=== PATIENT | female | born 1950 | race Caucasian/White ===

== ENCOUNTER → 2017-03-23 | Outpatient (CLI) | payer OTHER ==
[2016-01-15 11:39] VITALS: BP 104/62
--- NOTE | 2017-03-24 09:10 | MG ---
Examination: Bilateral screening mammogram. Clinical history: Routine screening. Technique: Digital CC and MLO views of both breasts were obtained. Computer aided detection analysis was performed and used during the interpretation. Comparison: 03/22/2016. Findings: The breasts are composed of scattered fibroglandular densities. Benign-appearing calcifications are noted in the breasts bilaterally. There is an apparent area of architectural distortion present in the upper outer aspect of the left breast in the posterior depth, which may be due to summation artifact. Additional imaging evaluation is recommended, with spot compression magnification views in the CC and MLO projections, a lateral view of the left breast and a left breast ultrasound. No suspicious mass, area of architectural distortion or suspicious cluster of microcalcifications is noted in the right breast. Impression: 1. No mammographic evidence of malignancy. BI-RADS category 0 (ZERO) - ASSESSMENT INCOMPLETE; ADDITIONAL IMAGING IS NEEDED. Recommend immediate recall for additional imaging evaluation, as described above. Diagnostic CAD was utilized and reviewed. * 0 (ZERO) - ASSESSMENT INCOMPLETE; ADDITIONAL IMAGING IS NEEDED. * 0C - ASSESSMENT INCOMPLETE, NEEDS ADDITIONAL IMAGING EVALUATION AND/OR PRIOR MAMMOGRAMS FOR COMPAR BRISA. * 1/1 (ONE) - NEGATIVE. * 2/II (TWO) - BENIGN FINDINGS. * 3/III (THREE) - PROBABLY BENIGN FINDING; SHORT INTERVAL FOLLOW-UP SUGGESTED. * 4/IV (FOUR) - SUSPICIOUS ABNORMALITY; BIOPSY SHOULD BE CONSIDERED. * 5/V - HIGHLY SUSPICIOUS OF MALIGNANCY; BIOPSY SHOULD BE PERFORMED. * 6/IV - KNOWN BIOPSY PROVEN MALIGNANCY-APPROPRIATE ACTION SHOULD BE TAKEN. A NEGATIVE X-RAY REPORT SHOULD NOT DELAY BIOPSY IF A DOMINANT OR CLINICALLY SUSPICIOUS MASS IS PRESENT; 4 TO 8 PERCENT OF CANCERS ARE NOT IDENTIFIED BY X-RAY. A NEGATIVE REPORT MAY REINFORCE THE CLINICAL IMPRESSION. ADENOSIS AND DENSE BREASTS MAY OBSCURE AN UNDERLYING NEOPLASM. Reported By:
== END ==
LOC: RAD 09:43
PROVIDERS: ATTEND Specialist
DX: Z12.31 Encounter for screening mammogram for malignant neoplasm of breast (principal)
CPT/HCPCS: 77067

== ENCOUNTER 2017-04-13 06:42 | Emergency (ER) | payer OTHER ==
[2017-04-13 06:47] VITALS: BP 109/68; BMI 30.9
[2017-04-13] MEDS ORDERED: ZOFRAN TAB 4 MG PO ONE (06:57)
[2017-04-13] MEDS ORDERED: ZOFRAN TAB 4 MG ONE (07:01)
--- NOTE | 2017-04-13 07:11 | DR.GENAD ---
HPI - PCP Primary Care Physician: kurt - Complaint/Symptoms Chief Complaint:: patient stated she returned from a cruise 3 days ago and has been vomiting and diarrhea and very nauseated. - Nurses notes reviewed Nurses Notes Review: Yes - Source History Provided: Patient - Mode of Arrival Mode of Arrival: Ambulatory - Timing Onset of Chief Complaint: 04/10/17 Came on: Gradually - Duration Duration: Intermittent How lon Duration: Days - Location Location: abdomin - Severity Severity: Moderate - Modifying Factors Worsens:: unknown - Associated Signs and Symptoms Associated Signs and Symptoms: dry heaves <DEMARIO TITUS - Last Filed: 04/13/17 07:53> PMH - PMH Past Medical History: Yes Past Medical History: Depression, Dyslipidemia, Hypothyroidism Past Surgical History: Yes Surgical History: Thyroidectomy - Family History History of Family Medical Conditions: Yes Family Medical History: Cancer - Social History Does patient currently use any type of tobacco product: No Have you used tobacco products in the last 12 months: No Type of Tobacco Use: None Does any household member use tobacco: No Alcohol Use: None Do you use any recreational Drugs:: No Lives With: Family Lives Where: Home - infectious screening In the last 2 months have you had wt loss of >10#?: NO Have you had fever, night sweats or hemotysis?: No Have you traveled outside the country in the last 6 months?: No Isolation: Standard <DEMARIO TITUS Last Filed: 04/13/17 07:53> ROS - Review of Systems Constitutional: No Symptoms Reported Eyes: No Symptoms Reported ENTM: No Symptoms Reported Respiratoy: No Symptoms Reported Cardiovascular: No Symptoms Reported Gastrointestinal/Abdominal: Abdominal Pain, Diarrhea, Nausea, Vomiting Genitourinary: No Symptoms Reported Neurological: No Symptoms Reported Musculoskeletal: No Symptoms Reported Integumentary: No Symptoms Reported Hematologic/Lymphatic: No Symptoms Reported Endocrine: No Symptoms Reported Psychiatric: No Symptoms Reported <DEMARIO TITUS Last Filed: 04/13/17 07:53> PE - General Limitations: No Limitations General Appearance: Alert, In No Apparent Distress - Head Head Exam: Normal Inspection - Eyes Eye exam: Normal Appearance, EOMI. negative: Scleral Icterus, Conjunctival Injection - ENT ENT Exam: Normal Exam, Normal Oropharynx External Ear Exam: Normal External Inspection Throat Exam: Normal Inspection - Neck Neck Exam: Normal Inspection, Full ROM, Trachea Midline - Respiratory Respiratory Exam: Normal Lung Sounds Bilat. negative: Accessory Muscle Use, Respiratory Distress Respiratory Exam: Bilateral Clear to Auscultation - Cardiovascular Cardiovascular Exam: Regular Rate - Abdominal Exam Abdominal Exam: Normal Inspection, Soft, Distention, Dimnished Bowel Sounds. negative: Normal Bowel Sounds, Tenderness, Guarding - Extremities Extremities Exam: Normal Inspection, Full ROM - Back Back Exam: Normal Inspection, Full ROM - Neurologic Neurological Exam: Alert, Oriented X3, CN II-XII Intact - Psychiatric Psychiatric Exam: Normal Mood - Skin Skin Exam: Intact, Normal Color <DEMARIO TITUS - Last Filed: 04/13/17 07:53> ROR - Labs Reviewed Result Diagrams: 04/13/17 07:47 04/13/17 07:47 - XRAY XRAY Interpreted by: Radiologist XRAY Findings: AAS: no free air, no air fluid levels <DEMARIO TITUS - Last Filed: 04/13/17 07:53> - Labs Reviewed Result Diagrams: 04/13/17 07:47 04/13/17 07:47 <ALSESIA GUALLPA - Last Filed: 04/13/17 08:45> - Labs Reviewed Laboratory: WBC 5.2 X10^3/uL (3.6-10.0) 04/13/17 07:47 RBC 4.93 X10^6/uL (3.5-5.4) 04/13/17 07:47 Hgb 14.8 g/dL (12.0-16.0) 04/13/17 07:47 Hct 42.3 % (36.0-47.0) 04/13/17 07:47 MCV 85.8 fL (80.0-100.0) 04/13/17 07:47 MCH 29.9 pg (27.0-34.0) 04/13/17 07:47 MCHC 34.9 g/dL (33.0-35.0) 04/13/17 07:47 RDW 14.0 % (11.6-16.5) 04/13/17 07:47 Plt Count 171 X10^3/uL (150.0-450.0) 04/13/17 07:47 MPV 8.6 fL (7.4-11.0) 04/13/17 07:47 Neut % 64.0 % (42.0-75.0) 04/13/17 07:47 Lymph % 21.3 % (21.0-51.0) 04/13/17 07:47 [place] % 12.5 % (0.0-13.0) 04/13/17 07:47 Eos % 1.5 % (0.9-2.9) 04/13/17 07:47 Baso % 0.7 % (0.2-1.0) 04/13/17 07:47 Neut # 3.3 x10^3/uL (2.2-4.8) 04/13/17 07:47 Lymph # 1.1 X10^3/uL (1.3-2.9) L 04/13/17 07:47 [place] # 0.7 x10^3/uL (0.3-0.8) 04/13/17 07:47 Eos # 0.1 x10^3/uL (0.0-0.2) 04/13/17 07:47 Baso # 0.0 X10^3/uL (0.0-0.1) 04/13/17 07:47 Absolute Nucleated RBC 0.1 /100WBC 04/13/17 07:47 Sodium 141 mmol/L (136-145) 04/13/17 07:47 Corrected Sodium TNP 04/13/17 07:47 Potassium 4.2 mmol/L (3.5-5.1) 04/13/17 07:47 Chloride 106 mmol/L (98-107) 04/13/17 07:47 Carbon Dioxide 30.6 mmol/L (21-32) 04/13/17 07:47 BUN 12 mg/dL (7-18) 04/13/17 07:47 Creatinine 0.77 mg/dL (0.55-1.02) 04/13/17 07:47 Est GFR (MDRD) Af Amer > 60 (>60) 04/13/17 07:47 Est GFR (MDRD) Non-Af > 60 (>60) 04/13/17 07:47 Glucose 98 mg/dL (65-99) 04/13/17 07:47 Calcium 9.7 mg/dL (8.5-10.1) 04/13/17 07:47 Urine pH 7.0 (5.0 - 8.0) 04/13/17 08:13 Ur Specific [place] 1.010 (1.000-1.030) 04/13/17 08:13 Urine Protein Negative (NEGATIVE) 04/13/17 08:13 Urine Glucose (UA) Negative (NEGATIVE) 04/13/17 08:13 Urine Ketones Negative (NEGATIVE) 04/13/17 08:13 Urine Occult Blood 2+ (NEGATIVE) 04/13/17 08:13 Urine Nitrite Negative (NEGATIVE) 04/13/17 08:13 Urine Bilirubin Negative (NEGATIVE) 04/13/17 08:13 Urine Urobilinogen Normal (NORMAL) 04/13/17 08:13 Ur Leukocyte Esterase Negative (NEGATIVE) 04/13/17 08:13 (ALESSIA GUALLPA) <DEMARIO TITUS - Last Filed: 04/13/17 07:53> <ALESSIA GUALLPA - Last Filed: 04/13/17 08:45> - Diagnosis Discharge Problem: Gastroenteritis - Discharge Plan Condition: Stable - Follow ups/Referrals Follow ups/Referrals: Rony Oseguera [Primary Care Provider] - 3 days - Instructions Instructions: Viral Gastroenteritis, Adult
--- NOTE | 2017-04-13 07:39 | RAD ---
HISTORY: Vomiting and diarrhea. Lower abdominal pain . Study: Acute abdominal series Comparison: Chest x-ray done January 25, 2015 Findings: The trachea is midline. The cardiac silhouette is unremarkable. There is hyperinflation of the sandra gs with increased interstitial markings. In the appropriate clinical setting findings may indicate C OPD. No infiltrate, CHF, pleural fluid or pneumothorax is seen. The bony thorax is unremarkable. Flat plate and upright evaluation of the abdomen demonstrates a normal bowel gas pattern. No pathol ogical soft tissue mass or calcification can be observed. The bony structures are grossly intact. IMPRESSION: 1. No acute cardiopulmonary disease. changes likely indicate COPD, in the appropriate clinical sett ing. 2. No evidence for acute abdominal pathology identified. Reported By:
[2017-04-13 07:57] LABS: BASOPHILS % (AUTO) 0.7 % (0.2-1.0); EOSINOPHILS # (AUTO) 0.1 x10^3/uL (0.0-0.2); EOSINOPHILS % (AUTO) 1.5 % (0.9-2.9); HEMATOCRIT 42.3 % (36.0-47.0); HEMOGLOBIN 14.8 g/dL (12.0-16.0); LYMPHOCYTES # (AUTO) 1.1 X10^3/uL (1.3-2.9); LYMPHOCYTES % (AUTO) 21.3 % (21.0-51.0); MEAN CORPUSCULAR HEMOGLOBIN 29.9 pg (27.0-34.0); MEAN CORPUSCULAR HGB CONC 34.9 g/dL (33.0-35.0); MEAN CORPUSCULAR VOLUME 85.8 fL (80.0-100.0); MEAN PLATELET VOLUME 8.6 fL (7.4-11.0); MONOCYTES # (AUTO) 0.7 x10^3/uL (0.3-0.8); MONOCYTES % (AUTO) 12.5 % (0.0-13.0); NEUTROPHILS # (AUTO) 3.3 x10^3/uL (2.2-4.8); PLATELET COUNT 171 X10^3/uL (150.0-450.0); RED BLOOD COUNT 4.93 X10^6/uL (3.5-5.4); WHITE BLOOD COUNT 5.2 X10^3/uL (3.6-10.0)
[2017-04-13 08:00] LABS: BLOOD UREA NITROGEN 12 mg/dL (7-18); CALCIUM 9.7 mg/dL (8.5-10.1); CARBON DIOXIDE 30.6 mmol/L (21-32); CHLORIDE 106 mmol/L (98-107); CREATININE 0.77 mg/dL (0.55-1.02); GLUCOSE 98 mg/dL (65-99); SODIUM 141 mmol/L (136-145); eGFR BLACK RACES > 60 (>60); eGFR NON BLACK RACES > 60 (>60)
[2017-04-13 08:40] LABS: BILIRUBIN,URINE NEGATIVE (NEGATIVE); BLOOD/HEMOGLOBIN,URINE 2+ (NEGATIVE); GLUCOSE, URINE NEGATIVE (NEGATIVE); KETONES,URINE NEGATIVE (NEGATIVE); LEUKOCYTE ESTERASE ,URINE NEGATIVE (NEGATIVE); NITRITES,URINE NEGATIVE (NEGATIVE); PROTEIN,URINE NEGATIVE (NEGATIVE); UROBILINOGEN,URINE NORMAL (NORMAL)
[2017-04-13] MEDS ORDERED: BENTYL I.M. INJ 10 MG IM ONE ×2 (08:50)
[2017-04-13 08:52] LABS: APPEARANCE,URINE HAZY (CLEAR); COLOR,URINE YELLOW (YELLOW); RBC,URINE 0-2 /HPF (NEGATIVE)
[2017-04-13 08:53] LABS: BACTERIA,URINE TRACE /HPF (NEGATIVE); SQUAMOUS EPITHELIAL CELL,UR FEW /HPF (NEGATIVE)
[2017-04-13 18:10] LABS: CRYPTOSPORIDIUM PARVUM ANTIGEN NEGATIVE (NEGATIVE); GIARDIA LAMBLIA ANTIGEN NEGATIVE (NEGATIVE)
== END 2017-04-13 09:02 | disposition home or self-care (01) ==
LOC: ER 06:42
DX: K52.89 Other specified noninfective gastroenteritis and colitis (principal)
CPT/HCPCS: 36415; 74022; 80048; 81001; 85025; 87045; 87205; 87328; 87329; 87336; 87427; 87493; 87899; 99282; S0181; J0500

== ENCOUNTER → 2017-05-03 | Outpatient (CLI) | payer OTHER ==
[2017-04-13 06:47] VITALS: BP 109/68
--- NOTE | 2017-05-03 15:15 | MG ---
HISTORY: Abnormal screening mammography with left breast focal asymmetry Left breast digital diagnostic mammography with CAD and left breast ultrasound. Comparison: Multiple prior exams dating back to February 16, 2011 FINDINGS: Mammogram: Spot-compression and mL views of the left breast were obtained. Scattered fibroglandular tissue is seen to be present with the previously described focal asymmetry and architectural distor tion dispersing with intervening foci of lucency most compatible with benign asymmetrical fibrogland ular parenchyma as well as a component of summation artifact but without underlying suspicious mass or architectural distortion but which will be correlated with ultrasound to exclude an underlying oc cult lesion. No skin thickening or nipple retraction is appreciated. No pathological lymphadenopa thy can be identified. Ultrasound: Multiple grayscale and color Doppler images of the upper outer quadrant left breast were obtained. There is a dense band of fibrocystic breast parenchyma at 1 o'clock approximately 2 cm fr om the nipple with several adjacent horizontally oriented smoothly marginated and well circumscribed anechoic cyst with posterior acoustical enhancement and no internal Doppler flow the largest of whi ch measures 4 mm. There are no suspicious peripheral nodular components. No suspicious cystic or azalia id nodules are seen to warrant biopsy. IMPRESSION: NO RADIOGRAPHIC EVIDENCE OF MALIGNANCY. ACR CATEGORY 2 - benign findings. FOLLOW-UP EXAM 1 YEAR. Diagnostic CAD was utilized and reviewed. * 0 (ZERO) - ASSESSMENT INCOMPLETE; ADDITIONAL IMAGING IS NEEDED. * 1/1 (ONE) - NEGATIVE. * 2/II (TWO) - BENIGN FINDINGS. * 3/III (THREE) - PROBABLY BENIGN FINDING; SHORT INTERVAL FOLLOW-UP SUGGESTED. * 4/IV (FOUR) - SUSPICIOUS ABNORMALITY; BIOPSY SHOULD BE CONSIDERED. * 5/V (FIVE) - HIGHLY SUSPICIOUS OF MALIGNANCY; BIOPSY SHOULD BE PERFORMED. A NEGATIVE X-RAY REPORT SHOULD NOT DELAY BIOPSY IF A DOMINANT OR CLINICALLY SUSPICIOUS MASS IS PRESENT; 4 TO 8 PERCENT OF CANCERS ARE NOT IDENTIFIED BY X-RAY. A NEG ATIVE REPORT MAY REINFORCE THE CLINICAL IMPRESSION. ADENOSIS AND DENSE BREASTS MAY OBSCURE AN UNDER LYING NEOPLASM. Reported By:
== END ==
LOC: RAD 13:30
PROVIDERS: ATTEND Specialist
DX: R92.8 Other abnormal and inconclusive findings on diagnostic imaging of breast (principal)
CPT/HCPCS: 76642; 77065

== ENCOUNTER → 2017-06-16 | Outpatient (CLI) | payer OTHER ==
--- NOTE | 2017-06-16 21:32 | RAD ---
Cervical spine series, five views Indication: Atraumatic neck pain Comparison: None available. Impression: Cervical spine alignment and vertebral body heights are normal. There is mild to moderate discogenic degenerative change at C5-6 and C6-7 with mild to moderate degenerative facet arthropathy noted diffu sely. There is at least mild bilateral bony neural foraminal stenosis at C5-6 and C6-7 although exami nation is limited by suboptimal positioning on the oblique projections. Visualized soft tissues are u nremarkable apart from surgical clips C6-7 level anteriorly. Reported By:
== END | disposition home or self-care (01) | DRG 552 ==
LOC: RAD 11:47
PROVIDERS: ATTEND Specialist
DX: M54.2 Cervicalgia (principal); M12.88 Other specific arthropathies, not elsewhere classified, other specified site; M48.02 Spinal stenosis, cervical region
CPT/HCPCS: 72050

== ENCOUNTER → 2017-07-01 | Outpatient (CLI) | payer OTHER ==
--- NOTE | 2017-07-06 09:22 | MRI ---
STUDY: MRI OF THE CERVICAL SPINE HISTORY: Cervical spondylosis. Neck pain with numbness and tingling. Comparison: Cervical spine radiographs from June 16, 2017 Technique: Multiplanar multisequence MRI of the cervical spine was obtained utilizing standard [facility] mental protocol. Sagittal T1, T2, T2 STIR, axial T1 and axial T2 weighted images of the cervical spin e were performed. Findings: Sagittal images: Vertebral body heights and alignment are within normal limits. Marrow signal is age-appropriate. Ther e is multilevel degenerative disc disease. The cervical spinal cord itself is normal in appearance, w ithout evidence of intrinsic signal abnormality. There is no evidence of cord compression. Axial images: C2 -- C3: Normal. C3 -- C4: There is a central disc osteophyte complex. This results in effacement of the ventral theca l sac and contact with the ventral aspect of the spinal cord. Overall, the central canal and neural f oramina are adequate. C4 -- C5: There is a central disc osteophyte complex. This results in effacement of the ventral theca l sac and mild contouring of the ventral aspect of the spinal cord. Overall, there is no significant spinal stenosis. Neural foramina are adequate. C5 -- C6: There is posterior disc osteophyte complex with central ossification of the posterior longi tudinal ligament. There is bilateral uncovertebral osteophyte formation right greater than left. This results in mild central canal stenosis. There is mild right neural foraminal stenosis. Left neural f oramen is adequate. C6 -- C7: There is a broad-based disc biopsy fight complex and bilateral uncovertebral osteophyte for mation. The combination of these findings results in moderate central canal stenosis. There is modera te left neural foraminal stenosis. The right neural foramen is adequate. C7 -- T1: Normal. IMPRESSION: 1. Multilevel cervical spondylosis. 2. Moderate spinal stenosis at C6/7. Mild spinal stenosis at C5/6. 3. Moderate neural foraminal stenosis at C6/7 on the left. Mild right neural foraminal stenosis at C 5/6. Reported By:
== END | disposition home or self-care (01) | DRG 552 ==
LOC: RAD 10:01
PROVIDERS: ATTEND Specialist
DX: M47.12 Other spondylosis with myelopathy, cervical region (principal); M48.02 Spinal stenosis, cervical region; M47.892 Other spondylosis, cervical region
CPT/HCPCS: 72141